=== PATIENT | male | born 1980 | race Caucasian/White ===

== ENCOUNTER 2018-03-21 17:20 | Emergency (ER) | payer BC ==
[2018-03-21] MEDS ORDERED: VANCOMYCIN HCL INJ 1000 MG VIAL IV ONE (17:38)
[2018-03-21] MEDS ORDERED: NORMAL SALINE 1000 ML 1,000 ML IV ONE (17:38)
--- NOTE | 2018-03-21 17:40 | ER Document Report ---
ED Medical Screen (RME) - General Chief Complaint: Wound Infection Stated Complaint: FINGER PAIN Time Seen by Provider: 03/21/18 17:36 TRAVEL OUTSIDE OF THE [place] IN LAST 30 DAYS: No - HPI Notes: 03/21/18 17:38 Patient is a 38-year-old male that presents to the emergency department for chief complaint of right finger infection. Patient states about 10 days ago he started having an infection in his right middle finger. It started to improve until 4 days ago when he hit it at work. He was started on clindamycin 300 4 times daily yesterday and had incision and drainage performed in [place] yesterday. Today patient noticed the redness getting significantly worse and streaking up his right forearm ROS: GENERAL: Denies fever of chills CV: Denies chest pain PHYSICAL EXAMINATION: GENERAL: Well-appearing, well-nourished and in no acute distress. HEAD: Atraumatic, normocephalic. EYES: Pupils equal round extraocular movements intact, conjunctiva are normal. ENT: Nares patent NECK: Normal range of motion LUNGS: No respiratory distress Musculoskeletal: Normal range of motion NEUROLOGICAL: Normal speech, normal gait. PSYCH: Normal mood, normal affect. MDM: Patient seen and examined for rapid initial assessment. Vital signs reviewed. A comprehensive ED assessment and evaluation of the patient, analysis of test results and completion of the medical decision making process will be conducted by additional ED providers. - Related Data Allergies/Adverse Reactions: No Known Allergies Allergy (Verified 03/21/18 17:21) Physical Exam - Vital signs Vitals: Temp Pulse Resp BP Pulse Ox 97.9 F 101 H 18 146/87 H 100 03/21/18 17:25 03/21/18 17:25 03/21/18 17:25 03/21/18 17:25 03/21/18 17:25 Course - Vital Signs Vital signs: Temp Pulse Resp BP Pulse Ox 97.9 F 101 H 18 146/87 H 100 03/21/18 17:25 03/21/18 17:25 03/21/18 17:25 03/21/18 17:25 03/21/18 17:25 Doctor's Discharge - Discharge Referrals: LOCALMD,NO [Primary Care Provider] - Follow up as needed
--- NOTE | 2018-03-21 18:09 | RADIOLOGY REPORT (SQ) ---
EXAM DESCRIPTION: FINGER RIGHT COMPLETED DATE/TIME: 03/21/2018 5:52 pm REASON FOR STUDY: infection COMPARISON: None. NUMBER OF VIEWS: Three views. TECHNIQUE: AP, lateral, and oblique images acquired of the right third finger. LIMITATIONS: None. FINDINGS: MINERALIZATION: Normal. BONES: No acute fracture or dislocation. No worrisome bone lesions. SOFT TISSUES: Diffuse swelling. No foreign body. OTHER: No other significant finding. IMPRESSION: Soft tissue swelling. No foreign body. COMMENT: SITE OF TRAUMA/COMPLAINT MARKED/STAMP COMPLETED: NO. TECHNICAL DOCUMENTATION: JOB ID: [id number] [employer]- All Rights Reserved Reading location - IP/workstation name: [email or web address]
[2018-03-21 18:20] LABS: ABSOLUTE EOSINOPHILS # (AUTO) 0.1 10^3/uL (0.0-0.6); ABSOLUTE LYMPHOCYTES (AUTO) 3.2 10^3/uL (0.5-4.7); ABSOLUTE MONOCYTES (AUTO) 0.7 10^3/uL (0.1-1.4); ABSOLUTE NEUT (AUTO) 6.6 10^3/uL (1.7-8.2); BASOPHILS % (AUTO) 0.4 % (0-2); EOSINOPHILS % (AUTO) 0.7 % (0-6); HEMATOCRIT 49.1 % (37.9-51.0); HEMOGLOBIN 16.6 g/dL (13.5-17.0); MEAN CORPUSCULAR HEMOGLOBIN 29.7 pg (27.0-33.4); MEAN CORPUSCULAR HGB CONC 33.8 g/dL (32.0-36.0); MEAN CORPUSCULAR VOLUME 88 fl (80-97); MONOCYTES % (AUTO) 6.8 % (3-13); PLATELET COUNT 183 10^3/uL (150-450); RED CELL DISTRIBUTION WIDTH 12.7 % (11.5-14.0); SEGMENTED NEUTROPHILS % (AUTO) 62.1 % (42-78); TOTAL CELLS COUNTED % (AUTO) 100 %; WHITE BLOOD COUNT 10.7 10^3/uL (4.0-10.5)
[2018-03-21 18:43] LABS: ANION GAP 13 (5-19); BLOOD UREA NITROGEN 13 mg/dL (7-20); CALCIUM 9.7 mg/dL (8.4-10.2); CARBON DIOXIDE 24 mmol/L (22-30); CHLORIDE 99 mmol/L (98-107); GLUCOSE 348 mg/dL (75-110); POTASSIUM 4.1 mmol/L (3.6-5.0); SODIUM 135.5 mmol/L (137-145)
[2018-03-21 18:54] LABS: C-REACTIVE PROTEIN 158.8 mg/L (<10.0)
[2018-03-21 19:00] LABS: ERYTHROCYTE SEDIMENTATION RATE 50 mm/hr (0-15)
--- NOTE | 2018-03-21 19:37 | ER Document Report ---
ED Wound - General Mode of Arrival: Ambulatory Information source: Patient TRAVEL OUTSIDE OF THE [place] IN LAST 30 DAYS: No <LY SOMERS - Last Filed: 03/21/18 20:03> <DAVE KENYON - Last Filed: 03/22/18 02:45> - General Chief Complaint: Wound Infection Stated Complaint: FINGER PAIN Time Seen by Provider: 03/21/18 17:36 Notes: Patient is a 38 year old male that presents to the ED today with complaints of an infection to his right third finger. Patient states he had a "small boil" on his finger for several days and yesterday it became worse so he went to an urgent care and they did an I&D. Patient states the area is much more swollen, red, and painful today. Patient had red streaking up his arm now which is new. Patient denies nausea, vomiting, or fevers. (LY SOMERS) - Related Data Allergies/Adverse Reactions: No Known Allergies Allergy (Verified 03/21/18 17:21) Past Medical History - Social History Smoking Status: Never Smoker Cigarette use (# per day): No Chew tobacco use (# tins/day): No Frequency of alcohol use: None Drug Abuse: None Lives with: Family Family History: Reviewed & Not Pertinent Patient has suicidal ideation: No Patient has homicidal ideation: No Past Surgical History: Reports: Hx Abdominal Surgery - hernia <LY SOMERS - Last Filed: 03/21/18 20:03> Review of Systems - Review of Systems Constitutional: No symptoms reported EENT: No symptoms reported Cardiovascular: No symptoms reported Respiratory: No symptoms reported Gastrointestinal: No symptoms reported Genitourinary: No symptoms reported Male Genitourinary: No symptoms reported Musculoskeletal: See HPI, Other - right third finger swelling/pain/infection Skin: No symptoms reported Hematologic/Lymphatic: No symptoms reported Neurological/Psychological: No symptoms reported -: Yes All other systems reviewed and negative <LY SOMERS - Last Filed: 03/21/18 20:03> Physical Exam <LY SOMERS - Last Filed: 03/21/18 20:03> - Vital signs Interpretation: Tachycardic - General General appearance: Appears well, Alert - HEENT Head: Normocephalic, Atraumatic Eyes: Normal Pupils: PERRL - Respiratory Respiratory status: No respiratory distress Chest status: Nontender Breath sounds: Normal Chest palpation: Normal - Cardiovascular Rhythm: Regular Heart sounds: Normal auscultation Murmur: No - Abdominal Inspection: Normal Distension: No distension Bowel sounds: Normal Tenderness: Nontender Organomegaly: No organomegaly - Back Back: Normal, Nontender - Extremities General upper extremity: Tender General lower extremity: Normal inspection, Nontender, Normal color, Normal ROM , Normal temperature, Normal weight bearing. No: Tiffany's sign - Neurological Neuro grossly intact: Yes Cognition: Normal Orientation: AAOx4 [place] Coma Scale Eye Opening: Spontaneous Denise Coma Scale Verbal: Oriented [place] Coma Scale Motor: Obeys Commands [place] Coma Scale Total: 15 Speech: Normal Motor strength normal: LUE, RUE, LLE, RLE Sensory: Normal - Psychological Associated symptoms: Normal affect, Normal mood - Skin Skin Temperature: Warm Skin Moisture: Dry Skin Color: Normal <DAVE KENYON - Last Filed: 03/22/18 02:45> - Vital signs Vitals: Temp Pulse Resp BP Pulse Ox 97.9 F 101 H 18 146/87 H 100 03/21/18 17:25 03/21/18 17:25 03/21/18 17:25 03/21/18 17:25 03/21/18 17:25 - Extremities Notes: Patient with redness and swelling of his middle finger. Held in flexed position. Abscess and purulent discharge noted over middle to distal phalanx on radial aspect with streaking up palm and streaking up the extensor tendons to the elbow. (DAVE KENYON) Course - Laboratory Result Diagrams: 03/21/18 18:05 03/21/18 18:05 <LY SOMERS - Last Filed: 03/21/18 20:03> - Laboratory Result Diagrams: 03/21/18 18:05 03/21/18 18:05 - Diagnostic Test Radiology reviewed: Reports reviewed <DAVE KENYON - Last Filed: 03/22/18 02:45> - Re-evaluation Re-evalutation: 03/22/18 02:42 Patient is a 38-year-old male who comes in complaining of pain redness and swelling to his right middle finger. He is right-hand dominant. Patient appears to have a abscess and symptoms are concerning for flexor tenosynovitis as well as some extensor involvement with streaking up to the elbow. Patient had recent contact with fish teeth and could possibly have vibrio. Antibiotics have been initiated including vancomycin, Zosyn, and doxycycline. Patient has been discussed with the orthopedic surgeon and ER doctor at [facility], Dr. Murcia and Dr. Santana. He is accepted for transfer. Patient refused ambulance transport and would like to go via private vehicle. Stable for transfer. He has been given his paperwork and x-ray to go with him. Patient has been told that he is to be n.p.o. (DAVE KENYON) - Vital Signs Vital signs: Temp Pulse Resp BP Pulse Ox 98.2 F 76 20 131/90 H 97 03/21/18 23:50 03/21/18 23:50 03/21/18 23:50 03/21/18 23:50 03/21/18 23:50 - Laboratory Laboratory results interpreted by me: 03/21/18 03/21/18 18:05 18:05 WBC 10.7 H RBC 5.60 H ESR 50 H Sodium 135.5 L Creatinine 0.50 L Glucose 348 H C-Reactive Protein 158.8 H Critical Care Note - Critical Care Note Total time excluding time spent on procedures (mins): 45 - Evaluation and management of an infection with multiple re-evaluations, coordination with specialist, coordination of transfer, counseling of patient <DAVE KENYON - Last Filed: 03/22/18 02:45> Discharge <LY SOMERS - Last Filed: 03/21/18 20:03> <DAVE KENYON - Last Filed: 03/22/18 02:45> - Discharge Clinical Impression: Infection of right hand, Flexor tenosynovitis of finger Cellulitis Qualifiers: Site of cellulitis: unspecified site Qualified Code(s): L03.90 - Cellulitis, unspecified Condition: Stable Disposition: [place] Referrals: LOCALMD,NO [NO LOCAL MD] - Follow up as needed Scribe Attestation: 03/22/18 02:45 I personally performed the services described in the documentation, reviewed and edited the documentation which was dictated to the scribe in my presence, and it accurately records my words and actions. (DAVE KENYON Scribe Documentation - Scribe Written by Scribe:: Rosie Chance, 03/21/20182004 acting as scribe for :: [place] <LY SOMERS - Last Filed: 03/21/18 20:03>
[2018-03-21] MEDS ORDERED: DOXYCYCLINE HYCLATE INJ 100 MG VIAL IV ONE (19:38)
[2018-03-21] MEDS ORDERED: PIPERACILLIN/TAZOBACTAM 3.375 GM VIAL IV ONE (19:38)
[2018-03-21 23:05] VITALS: BP 131/90
== END 2018-03-22 | disposition short-term general hospital (02) ==
LOC: ER 17:20
DX: S63.619A Unspecified sprain of unspecified finger, initial encounter (principal); L03.011 Cellulitis of right finger; M79.644 Pain in right finger(s); M79.89 Other specified soft tissue disorders; X58.XXXA Exposure to other specified factors, initial encounter
CPT/HCPCS: 36415; 87040; 85025; 85652; 86140; 80048; 83605; 73140; J3490; J7030; J3370; J2543